=== PATIENT | female | born 1965 | race Caucasian/White ===

== ENCOUNTER 2019-08-10 11:47 | Emergency (ER) | payer SELFPAY ==
[2019-08-10] MEDS ORDERED: METOCLOPRAMIDE 10 MG/2mL INJ ONE (12:37)
[2019-08-10] MEDS ORDERED: NA CHLORIDE 0.9% 1,000 ML ONE (12:38)
[2019-08-10] MEDS ORDERED: NA CHLORIDE 0.9% 100 ML IV ONE (12:38)
[2019-08-10] MEDS ORDERED: KETOROLAC 30 MG/ML INJ ONE (12:38)
[2019-08-10 12:46] LABS: Absolute Lymphocytes (CBC) 4.6 K/uL (0.7-4.9); Basophils % 0.5 % (0-1.3); Hematocrit 44.7 % (36.0-45.0); MPV 8.7 fL (7.6-11.3)
[2019-08-10 12:48] LABS: Protime INR 1.03
[2019-08-10 13:11] LABS: ALT/SGPT 26 U/L (12-78); AST/SGOT 18 U/L (15-37); Albumin 3.7 g/dL (3.4-5.0); Alkaline Phosphatase 97 U/L (45-117); BUN Blood Urea Nitrogen 14 mg/dL (7-18); Bicarbonate 26 mmol/L (21-32); Bilirubin Direct < 0.1 mg/dL (0-0.2); Bilirubin Total 0.3 mg/dL (0.2-1.0); Glucose Level 79 mg/dL (74-106); Magnesium 1.9 mg/dL (1.8-2.4); NT PRO-BNP 48 pg/mL (<125); Potassium 3.6 mmol/L (3.5-5.1); Protein, Total 7.5 g/dL (6.4-8.2); Sodium Level 143 mmol/L (136-145); Troponin (Emerg Dept Use Only) < 0.02 ng/mL (0.0-0.045)
--- NOTE | 2019-08-10 13:42 | RAD REPORT ---
EXAM DESCRIPTION: RAD - Chest Single View - 08/10/2019 1:32 pm CLINICAL HISTORY: Chest pain, back pain COMPARISON: October 2016 TECHNIQUE: AP portable chest image was obtained 1306 hours . FINDINGS: Lungs are clear. Heart and vasculature are normal. No measurable pleural effusion and no p neumothorax. No acute bony abnormality seen. No acute aortic findings suspected. IMPRESSION: No acute cardiopulmonary process. No suspicious change from comparison.
[2019-08-10 13:49] LABS: Urine Blood 2+ (NEG); Urine Glucose NEGATIVE (NEG); Urine Protein 1+ (NEG); Urine pH 6.5 (5.0-7.0)
--- NOTE | 2019-08-10 15:22 | EDPHYS ---
Physician Documentation [facility] Name: Leti Lewis Age: 54 yrs Sex: Female : 1965 Arrival Date: 08/10/2019 Time: 11:50 Bed 20 Private MD: ED Physician Hayley Ochoa HPI: 08/10 12:29 This 54 yrs old Female presents to ER via Ambulatory with complaints of Chest ma2 discomfort. 12:29 The patient or guardian reports chest pain that is located primarily in the substernal ma2 area. Onset: acutely. The pain does not radiate. Associated signs and symptoms: Pertinent positives: cough, Pertinent negatives: diaphoresis, lower extremity pain, lightheadedness. The chest pain is described as aching. Duration: The patient or guardian reports multiple episodes. Severity of pain: At its worst the pain was moderate in the emergency department the pain is unchanged. 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 - Social history:: Smoking status: Patient uses tobacco products, smokes two packs cigarettes per day. Patient/guardian denies using alcohol, street drugs, The patient lives with family. - Ebola Screening: : No symptoms or risks identified at this time. - Family history:: not pertinent. ROS: 12:29 Constitutional: Negative for fever, chills, and weight loss. ma2 12:29 All other systems are negative. Exam: 12:29 Constitutional: This is a well developed, well nourished patient who is awake, alert, ma2 and in no acute distress. Eyes: Pupils equal round and reactive to light, extra-ocular motions intact. Lids and lashes normal. Conjunctiva and sclera are non-icteric and not injected. Cornea within normal limits. Periorbital areas with no swelling, redness, or edema. Chest/axilla: Normal chest wall appearance and motion. Nontender with no deformity. No lesions are appreciated. Cardiovascular: Regular rate and rhythm with a normal S1 and S2. No gallops, murmurs, or rubs. Normal PMI, no JVD. No pulse deficits. Respiratory: Lungs have equal breath sounds bilaterally, clear to auscultation and percussion. No rales, rhonchi or wheezes noted. No increased work of breathing, no retractions or nasal flaring. Abdomen/GI: Soft, non-tender, with normal bowel sounds. No distension or tympany. No guarding or rebound. No evidence of tenderness throughout. Female : Normal external genitalia. Skin: Warm, dry with normal turgor. Normal color with no rashes, no lesions, and no evidence of cellulitis. MS/ Extremity: Pulses equal, no cyanosis. Neurovascular intact. Full, normal range of motion. Vital Signs: 12:14 BP 144 / 80; Pulse 74; Resp 18; Temp 98.1; Pulse Ox 98% on R/A; Pain 4/10; ph 13:00 BP 112 / 46; Pulse 68; Resp 18; Pulse Ox 97% on R/A; ph 14:01 BP 118 / 74; Pulse 62; Resp 18; Pulse Ox 98% on R/A; ph 15:00 BP 102 / 57; Pulse 73; Resp 18; Temp 98.1(TE); Pulse Ox 99% on R/A; mh5 MDM: 12:03 Patient medically screened. ma2 12:29 Differential diagnosis: abnormal EKG, acute pericarditis, anxiety, chest wall pain, ma2 congestive heart failure gastroesophageal reflux disease (GERD). HEART Score: History: Moderately Suspicious (1), ECG: Normal (0), Age: > 45 and < 65 years (1), Risk Factors: > or = 3 Risk factors for atherosclerotic disease (2), Troponin: < or = 1 x Normal Limit (0). 15:19 HEART Score: History: Moderately Suspicious (1). Data reviewed: vital signs, nurses ma2 notes. Counseling: I had a detailed discussion with the patient and/or guardian regarding: the historical points, exam findings, and any diagnostic results supporting the discharge/admit diagnosis, the presence of at least one elevated blood pressure reading (>120/80) during this emergency department visit, the need for outpatient follow up. ED course: chest pain is constant for 2 days, pleuritic and reproducible on exam, has 2 troponin negative . 08/10 12:04 Order name: Basic Metabolic Panel; Complete Time: 13:16 tx2 08/10 12:04 Order name: CBC with Diff; Complete Time: 13:10 tx2 08/10 12:04 Order name: LFT's; Complete Time: 13:16 tx2 08/10 12:04 Order name: Magnesium; Complete Time: 13:16 tx2 08/10 12:04 Order name: NT PRO-BNP; Complete Time: 13:16 tx2 08/10 12:04 Order name: PT-INR; Complete Time: 13:10 tx2 08/10 12:04 Order name: Troponin (emerg Dept Use Only); Complete Time: 13:16 [facility] 08/10 12:31 Order name: Urine Dipstick--Ancillary (enter results); Complete Time: 15:19 08/10 12:31 Order name: Urine --Ancillary (enter results); Complete Time: 15:19 08/10 13:21 Order name: Chest Single View [facility] 08/10 14:00 Order name: Troponin (emerg Dept Use Only) ph 08/10 15:01 Order name: Troponin (Emerg Dept Use Only) [facility] 08/10 12:04 Order name: EKG; Complete Time: 12:06 tx2 08/10 12:04 Order name: Cardiac monitoring; Complete Time: 12:33 tx2 08/10 12:04 Order name: EKG - Nurse/Tech; Complete Time: 12:34 tx2 08/10 12:04 Order name: IV Saline Lock; Complete Time: 12:34 tx2 08/10 12:04 Order name: Labs collected and sent; Complete Time: 12:34 tx2 08/10 12:04 Order name: O2 Per Protocol; Complete Time: 12:34 tx2 08/10 12:04 Order name: O2 Sat Monitoring; Complete Time: 12:34 ma2 Administered Medications: 12:51 Drug: NS 0.9% 1000 ml Route: IV; Rate: 1 bolus; Site: right forearm; ph 13:59 Follow up: Response: No adverse reaction; IV Status: Completed infusion; IV Intake: ph 1000ml 12:55 Drug: TORadol 30 mg Route: IVP; Site: right forearm; ph 13:59 Follow up: Response: No adverse reaction; Pain is decreased ph 12:55 Drug: Reglan 20 mg Route: IVP; Site: right forearm; ph 13:59 Follow up: Response: No adverse reaction ph Disposition: 08/10/19 15:20 Discharged to Home. Impression: Cystitis, unspecified. - Condition is Stable. - Discharge Instructions: Urinary Tract Infection, Adult, [id number], Nonspecific Chest Pain, [id number]. - Prescriptions for Tylenol- Codeine #3 300-30 mg Oral Tablet - take 2 tablet by ORAL route every 6 hours As needed; 30 tablet. cefpodoxime 200 mg Oral Tablet - take 1 tablet by ORAL route every 12 hours with food; 10 tablet. - Work release form, Family Work Release, Medication Reconciliation Form, Thank You Letter, Antibiotic Education, Prescription Opioid Use form. - Follow up: Private Physician; When: Tomorrow; Reason: Continuance of care. Signatures: Dispatcher [employer] [facility] Yeimy Moore, RN RN ph John Vega RN RN jl7 Hayley Ochoa MD MD ma2 Corrections: (The following items were deleted from the chart) 13:18 12:06 Chest Single View+RAD.RAD.BRZ ordered. [facility] 15:37 15:20 08/10/2019 15:20 Discharged to Home. Impression: Cystitis, unspecified. Condition jl7 is Stable. Forms are Work release form, Family Work Release, Medication Reconciliation Form, Thank You Letter, Antibiotic Education, Prescription Opioid Use. Follow up: Private Physician; When: Tomorrow; Reason: Continuance of care. ma2
--- NOTE | 2019-08-10 15:22 | ER ---
Nurse's Notes [facility] Name: Leti Lewis Age: 54 yrs Sex: Female : 1965 Arrival Date: 08/10/2019 Time: 11:50 Bed 20 Private MD: Diagnosis: Cystitis, unspecified Presentation: 08/10 12:09 Presenting complaint: Patient states: Pain in center of chest that began yesterday, ph radiates to back, L arm and L jaw, also reports SOB, headache, and diaphoresis when pain occurred, reports taking ASA 325 x 2 last night and pain subsided, pain returned during the night, denies N/V. Transition of care: patient was not received from another setting of care. Onset of symptoms was August 10, 2019. Risk Assessment: Do you want to hurt yourself or someone else? Patient reports no desire to harm self or others. Initial Sepsis Screen: Does the patient meet any 2 criteria? No. Patient's initial sepsis screen is negative. Does the patient have a suspected source of infection? No. Patient's initial sepsis screen is negative. Care prior to arrival: None. 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 - Social history:: Smoking status: Patient uses tobacco products, smokes two packs cigarettes per day. Patient/guardian denies using alcohol, street drugs, The patient lives with family. - Ebola Screening: : No symptoms or risks identified at this time. - Family history:: not pertinent. Screenin:15 Abuse screen: Denies threats or abuse. Denies injuries from another. Nutritional ph screening: No deficits noted. Tuberculosis screening: No symptoms or risk factors identified. Fall Risk None identified. Assessment: 12:15 General: Appears in no apparent distress. comfortable, slender, well groomed, Behavior ph is calm, cooperative, appropriate for age, Denies fever, feeling ill. Pain: Complains of pain in xyphoid area and mid-sternal area Pain radiates to left jaw, back and left arm. Neuro: Level of Consciousness is awake, alert, obeys commands, Oriented to person, place, time, situation. Neuro: Reports headache. Cardiovascular: Reports chest pain, diaphoresis, lightheadedness, shortness of breath, Capillary refill < 3 seconds in bilateral fingers Patient's skin is warm and dry. Rhythm is regular Chest pain is located in substernal area radiates to left arm(s) back jaw(s). Respiratory: Airway is patent Respiratory effort is even, unlabored, Respiratory pattern is regular, symmetrical, Denies cough. GI: No signs and/or symptoms were reported involving the gastrointestinal system. Derm: Skin is intact, is healthy with good turgor, Skin is pink, warm \T\ dry. Musculoskeletal: Circulation, motion, and sensation intact. Range of motion: intact in all extremities. 13:00 Reassessment: Patient appears in no apparent distress at this time. Patient and/or ph family updated on plan of care and expected duration. Pain level reassessed. Patient is alert, oriented x 3, equal unlabored respirations, skin warm/dry/pink. 14:20 Reassessment: Patient appears in no apparent distress at this time. Patient and/or ph family updated on plan of care and expected duration. Pain level reassessed. Patient is alert, oriented x 3, equal unlabored respirations, skin warm/dry/pink. Repeat troponin sent to lab. 15:30 Reassessment: Patient appears in no apparent distress at this time. Patient and/or ph family updated on plan of care and expected duration. Pain level reassessed. Patient is alert, oriented x 3, equal unlabored respirations, skin warm/dry/pink. Pt d/c home. Vital Signs: 12:14 BP 144 / 80; Pulse 74; Resp 18; Temp 98.1; Pulse Ox 98% on R/A; Pain 4/10; ph 13:00 BP 112 / 46; Pulse 68; Resp 18; Pulse Ox 97% on R/A; ph 14:01 BP 118 / 74; Pulse 62; Resp 18; Pulse Ox 98% on R/A; ph 15:00 BP 102 / 57; Pulse 73; Resp 18; Temp 98.1(TE); Pulse Ox 99% on R/A; mh5 ED Course: 11:50 Patient arrived in ED. mr 12:03 Hayley Ochoa MD is Attending Physician. ma2 12:04 Urine collected: clean catch specimen, clear. 5 12:04 Patient has correct armband on for positive identification. Bed in low position. [facility] light in reach. Side rails up X 1. nuclear monitoring technician on. Pulse ox on. NIBP on. 12:09 Yeimy Moore RN is Primary Nurse. ph 12:12 Triage completed. ph 12:15 Arm band placed on Patient placed in an exam room, on a stretcher, on ekg monitor tech, ph on pulse oximetry. 13:27 X-ray completed. Portable x-ray completed in exam room. Patient tolerated procedure jb2 well. 15:36 No provider procedures requiring assistance completed. IV discontinued, intact, jl7 bleeding controlled, No redness/swelling at site. Pressure dressing applied. Administered Medications: 12:51 Drug: NS 0.9% 1000 ml Route: IV; Rate: 1 bolus; Site: right forearm; ph 13:59 Follow up: Response: No adverse reaction; IV Status: Completed infusion; IV Intake: ph 1000ml 12:55 Drug: TORadol 30 mg Route: IVP; Site: right forearm; ph 13:59 Follow up: Response: No adverse reaction; Pain is decreased ph 12:55 Drug: Reglan 20 mg Route: IVP; Site: right forearm; ph 13:59 Follow up: Response: No adverse reaction ph Intake: 13:59 IV: 1000ml; Total: 1000ml. ph Outcome: 15:20 Discharge ordered by . ma2 15:36 Discharged to home ambulatory. jl7 15:36 Condition: stable 15:36 Discharge instructions given to patient, Instructed on discharge instructions, follow up and referral plans. medication usage, Demonstrated understanding of instructions, follow-up care, medications, Prescriptions given X 2. 15:37 Patient left the ED. jl7 Signatures: Natividad Lopez Jesse 2 Yeimy Moore RN RN [facility] John Vega RN RN jl7 Hayley Ochoa MD MD ma2 Corrections: (The following items were deleted from the chart) 12:55 12:55 TORadol 30 mg IVP in right antecubital ph ph 15:02 15:00 BP 102 / 57; Pulse 73bpm; Resp 18bpm; Pulse Ox 99% RA; mh5 mh5
[2019-08-10 15:47] VITALS: TEMP 98.1
[2019-08-10 15:50] VITALS: BP 102/57; O2SAT 99
--- NOTE | 2019-08-10 18:31 | EKG ---
Test Date: 2019-08-10 Test Time: 12:01:17 [employer]: CHUCK MEASUREMENT RESULTS: Intervals: Rate: 77 AR: 160 QRSD: 80 QT: 362 QTc: 409 [place]: P: 51 AR: 160 QRS: 69 T: 32 INTERPRETIVE STATEMENTS: Normal sinus rhythm Possible Left atrial enlargement Borderline ECG Compared to ECG 11/18/2016 08:21:38 No significant changes Electronically Signed On 08-10-19 18:29:30 CDT by Slick Rivas
== END 2019-08-10 15:37 | disposition home or self-care (01) ==
LOC: ER 11:47
DX: N30.90 Cystitis, unspecified without hematuria (principal); J44.9 Chronic obstructive pulmonary disease, unspecified; F41.9 Anxiety disorder, unspecified; Z88.2 Allergy status to sulfonamides
CPT/HCPCS: 36415; 71045; 80048; 80076; 81003; 81025; 83735; 83880; 84484; 85025; 85610; 93005; 96361; 96374; 96375; 99284; J2765; J7030